=== PATIENT | male | born 1995 | race Caucasian/White ===

== ENCOUNTER 2022-09-30 18:17 | Emergency (ER) | payer OTHER ==
[2022-09-30 18:25] VITALS: BMI 25.1
[2022-09-30] MEDS ORDERED: SODIUM CHLORIDE 0.9% 500 ML INFUS.BAG IV ONE (20:31)
[2022-09-30] MEDS ORDERED: ACETAMINOPHEN 1000 MG/100 ML BAG IVPB ONE (20:31)
[2022-09-30] MEDS ORDERED: ACETAMINOPHEN INJECTION 100 ML IVPB ONE (20:57)
[2022-09-30 21:14] LABS: BASO % 0.1 % (0-2.0); EOS % 0.1 % (0-4.5); HEMATOCRIT 43.3 % (35.4-49); HEMOGLOBIN 15.3 GM/dL (11.7-16.9); LYMPH % 2.9 % (8-40); MCH 29.7 pg (25.7-33.7); MCHC 35.2 g/dl (32.0-35.9); MEAN CELL VOLUME 84.5 fl (80-96); MEAN PLT VOLUME 7.6 fl (7.5-11.1); MONO % 0.4 % (3.8-10.2); NEUT % 96.5 % (42.8-82.8); PLATELET COUNT 244 10^3/uL (134-434); RBC 5.13 M/mm3 (4.00-5.60); RDW 12.2 % (11.9-15.9); WHITE BLOOD COUNT 11.5 K/mm3 (4.0-10.0)
[2022-09-30 21:26] LABS: INR 1.19 (0.83-1.09); PROTHROMBIN TIME (PATIENT) 13.8 SEC (9.7-13.0)
[2022-09-30 21:41] LABS: POTASSIUM 3.4 mmol/L (3.5-5.1)
[2022-09-30 21:42] LABS: CALCIUM 9.2 mg/dL (8.5-10.1)
[2022-09-30 21:43] LABS: ALBUMIN 4.3 g/dl (3.4-5.0); BLOOD UREA NITROGEN 10.9 mg/dL (7-18)
[2022-09-30 21:46] LABS: CREATININE 1.2 mg/dL (0.55-1.3)
[2022-09-30 21:47] LABS: BILIRUBIN,TOTAL 3.1 mg/dL (0.2-1)
[2022-09-30 21:48] LABS: TOT PROT 7.5 g/dl (6.4-8.2)
[2022-09-30 23:34] VITALS: TEMP 98.6
[2022-10-01 01:18] VITALS: BP 111/67; PULSE 97; RESP 18
== END 2022-10-01 01:38 | disposition home or self-care (01) ==
LOC: JER 18:17
PROC: 0J990ZZ Drainage of Buttock Subcutaneous Tissue and Fascia, Open Approach (ICD-10-PCS; principal; 2022-09-30)
PROC: 3E033NZ Introduction of Analgesics, Hypnotics, Sedatives into Peripheral Vein, Percutaneous Approach (ICD-10-PCS; 2022-09-30)
DX: K62.5 Hemorrhage of anus and rectum (principal); K62.89 Other specified diseases of anus and rectum; R50.9 Fever, unspecified; R00.0 Tachycardia, unspecified; L05.91 Pilonidal cyst without abscess
CPT/HCPCS: 36415; 72193-TC; 80053; 83605; 84484; 85025; 85610; 85730; 86850; 86900; 86901; 87040; 87076; 93005; 93010; 99285-25; Q9967

== ENCOUNTER 2022-11-09 04:30 | Day surgery (SDC) | payer OTHER ==
[2022-11-07 09:26] VITALS: BMI 23.7
[2022-11-09] MEDS ORDERED: LIDOCAINE HCL 1%, 10 MG/ML (20ML VIAL) ONE (07:29)
[2022-11-09] MEDS ORDERED: BUPIVACAINE HCL/PF 0.5% (5MG/ML) 10 ML VIAL ONE (07:30)
[2022-11-09] MEDS ORDERED: SUCCINYLCHOLINE CHLORIDE 200 MG/10 ML SYRINGE ONE (07:52)
[2022-11-09] MEDS ORDERED: PROPOFOL 40 ML ONE (07:52)
[2022-11-09] MEDS ORDERED: MIDAZOLAM HCL 2 MG/2 ML SINGLE DOSE VIAL ONE (07:52)
[2022-11-09] MEDS ORDERED: ceFAZolin SODIUM 1 GM VIAL IVPB ONE (08:25)
[2022-11-09] MEDS ORDERED: PROPOFOL 20 ML ONE (08:36)
[2022-11-09] MEDS ORDERED: ACETAMINOPHEN 500 MG TABLET (FP) PO PRN (09:23)
[2022-11-09] MEDS ORDERED: ONDANSETRON 4 MG/2 ML VIAL IVPUSH PRN (09:23)
[2022-11-09] MEDS ORDERED: PROMETHAZINE HCL 25 MG/1 ML VIAL IVPB PRN (09:23)
[2022-11-09] MEDS ORDERED: oxyCODONE HCL 5 MG TABLET PO PRN (09:23)
[2022-11-09] MEDS ORDERED: LACTATED RINGERS SOLUTION 1,000 ML IV SCH (10:00)
[2022-11-09 10:22] VITALS: BP 126/65
[2022-11-09 10:38] VITALS: PULSE 77; RESP 19; TEMP 97.7
== END 2022-11-09 11:53 | disposition home or self-care (01) ==
LOC: JASU-SURG 04:30
PROVIDERS: ATTEND Surgery
PROC: 0JB90ZZ Excision of Buttock Subcutaneous Tissue and Fascia, Open Approach (ICD-10-PCS; principal; 2022-11-09 08:00)
DX: L05.91 Pilonidal cyst without abscess (principal); L05.92 Pilonidal sinus without abscess
CPT/HCPCS: 88304-TC; 94760